=== PATIENT | female | born 1970 | race African-American/Black ===

== ENCOUNTER → 2018-03-31 | Outpatient (CLI) | payer OTHER ==
[2018-03-31 13:35] LABS: ABSOLUTE BASOPHILS 0.1 thou/uL (0.0-0.2); ABSOLUTE EOSINOPHILS 0.3 thou/uL (0.0-0.7); ABSOLUTE LYMPHOCYTES 2.5 thou/uL (0.8-5.3); ABSOLUTE MONOCYTES 0.4 thou/uL (0.0-1.2); ABSOLUTE NEUTROPHILS 5.3 thou/uL (1.6-8.1); BASOPHILS 0.7 %; EOSINOPHILS 3.3 %; HEMATOCRIT 33.6 % (37.0-47.0); HEMOGLOBIN 10.8 gm/dL (12.0-15.0); LYMPHOCYTES 28.7 %; MCH 23.7 pg (26.0-34.0); MCHC 32.2 g/dL (28.0-37.0); MCV 73.7 fL (80.0-100.0); MONOCYTES 4.8 %; MPV 8.4 fl. (7.2-11.1); NUCLEATED RBCS 0 /100WBC; PLATELET COUNT* 360 thou/uL (150-400); POLYS 62.5 %; RBC 4.57 mil/uL (4.20-5.00); RDW-CV 17.4 % (10.5-14.5); WBC 8.5 thou/uL (4.0-11.0)
== END ==
LOC: M.LAB 13:15
PROVIDERS: Obstetrics & Gynecology
DX: N92.0 Excessive and frequent menstruation with regular cycle (principal); N95.1 Menopausal and female climacteric states; N93.9 Abnormal uterine and vaginal bleeding, unspecified

== ENCOUNTER → 2018-04-03 | Outpatient (CLI) | payer OTHER | LOC: M.ULTRA 09:00 | DX: Z12.31 Encounter for screening mammogram for malignant neoplasm of breast (principal); N93.9 Abnormal uterine and vaginal bleeding, unspecified; R93.89 Abnormal findings on diagnostic imaging of other specified body structures ==

== ENCOUNTER 2018-06-05 08:38 | Emergency (ER) | payer OTHER ==
[~2018-06-05] VITALS: Ht 172.7 cm; Wt 124.7 kg
[2018-06-05] MEDS ORDERED: TOPROL XL25 MG PO (09:07)
[2018-06-05 09:27] VITALS: BP 161/109
== END 2018-06-05 09:28 | disposition home or self-care (01) ==
LOC: M.ERS 08:38
DX: I10 Essential (primary) hypertension (principal); F41.9 Anxiety disorder, unspecified; F32.9 Major depressive disorder, single episode, unspecified; Z86.2 Personal history of diseases of the blood and blood-forming organs and certain disorders involving the immune mechanism